=== PATIENT | male | born 1955 | race Hispanic/Latino ===

== ENCOUNTER → 2021-04-25 13:52 | Outpatient (CLI) | payer OTHER, SELFPAY ==
--- NOTE | 2021-04-25 14:05 | MRI_ITS ---
STUDY: MRI LEFT SHOULDER REASON FOR EXAM: Male, 66 years old. LEFT SHOULDER SPRAIN TECHNIQUE: Standardized fat and water weighted pulse sequences were obtained in all 3 orthogonal planes. COMPARISON: None. FINDINGS: A large full-thickness tear of the supraspinatus tendon is present with retraction of 2.39 cm from the greater tuberosity. A small glenohumeral joint effusion is present as well. Normal infraspinatus tendon. Normal subscapularis tendon. Normal teres minor tendon. Normal supraspinatus muscle. Normal infraspinatus muscle. Normal subscapularis muscle. Normal teres minor muscle. Normal glenohumeral articulation. Normal humeral head and visualized proximal humerus. Normal biceps labral complex. Normal intracapsular long biceps tendon. Normal labrum. Normal capsulo- ligamentous complex. Normal rotator interval. There is severe hypertrophic osteoarthritis of the acromioclavicular articulation with impingement upon the musculotendinous junction of the supraspinatus muscle. There is a Type II morphology (curved), with a neutral orientation. There is fluid distention of the subacromial-subdeltoid bursa, which communicates with the glenohumeral joint, through a rotator cuff tear. Normal visualized coracohumeral and coracoacromial ligaments. Normal quadrilateral space. Normal axillary space. Normal deltoid muscle. Normal trapezius muscle. MRI/Upper Ext Joint Only(Routine) IMPRESSION: 1. A large full-thickness tear of the supraspinatus tendon is present with retraction of 2.39 cm from the greater tuberosity. A small glenohumeral joint effusion is present as well. 2. 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 Electronically Signed: Олег Small MD at 21:52 EST , Service support ,
== END ==
DX: S43.402A Unspecified sprain of left shoulder joint, initial encounter (principal)
CPT/HCPCS: 73221

== ENCOUNTER 2021-11-03 08:38 | Emergency (ER) | payer OTHER, SELFPAY ==
[2021-11-03 08:39] VITALS: BP 167/81; PULSE 89; RESP 16; TEMP 36.1; O2SAT 99; BMI 33.0
--- NOTE | 2021-11-03 08:51 | EX.ED.GUMALE ---
HPI History of Present Illness Chief Complaint: Complaint Detail of Chief Complaint: Difficulty urinating. Informant: patient and spouse/S.O. Pain Onset: Days Context: Gradual Onset Timing: Continuous Current Severity: Mild Maximum Severity: Moderate Narrative Narrative: 66-year-old male had left rotator cuff surgery done at [facility] on Saturday. Since that time he had difficulty urinating. During the surgery he did have a Gunderson catheter in after they removed that he has had difficulty urinating. No gross hematuria. No dysuria or fever. No prior history. No prior prostate surgery. Prior similar symptoms: No Recent Illness/Hospitalization: No PFSH PFSH Home Medications tamsulosin [Flomax] 0.4 mg PO DAILY 10 Days #10 cap 11/03/21 [Rx Last Taken Unknown] Social History Smoking Status: Unknown if ever smoked ROS ROS ED ROS Narrative Difficulty urinating. Review of Systems ROS Unobtainable: Denies due to encephalopathy Constitutional Constitutional ED: Denies fever(s) Eyes Eyes: Denies change in vision ENT ENT ED: Denies ear pain Cardiovascular Cardiovascular: Denies chest pain Respiratory/Chest Respiratory/Chest: Denies dyspnea Gastrointestinal Gastrointestinal: Reports abdominal pain; Denies nausea or vomiting Genitourinary Genitourinary ED: Denies dysuria or hematuria Musculoskeletal Musculoskeletal: Denies myalgias Integumentary Denies rash Neurologic Neurologic: Denies headache(s) Psychiatric Psychiatric: Denies depression Endocrine Endocrinology: Denies polyuria Hematologic/Lymphatic Hematologic/Lymphatic: Denies easy bruising Allergic/Immunologic Allergic/Immunologic ED: Denies urticaria EXAM Physical Exam Narrative Exam Narrative: 66-year-old male no acute distress. Vital signs stable afebrile. H EENT exam unremarkable. Moist mucous membranes. Lungs clear to auscultation. Heart regular rhythm rate about 90 no murmur. Abdomen obese soft mildly distended and tender suprapubic region. No peritoneal signs. Moves all 4 extremities. Nontender no edema. He does have a harness on his left shoulder after the surgery. Neurologically is awake and alert. Const Vital Signs: 11/03/21 08:39 Temperature 97.0 F L Temperature Source Temporal Pulse Rate 89 Respiratory Rate 16 Blood Pressure 167/81 H Blood Pressure Mean 109 Pulse Ox 99 Oxygen Delivery Method Room Air Positive well nourished, well developed and obese; Negative for cachectic, contractures or unkempt General Appearance ED: well developed and NAD; Negative for unkempt, cachectic, contractures or pallor Nutritional Appearance: obese; Negative for cachectic HEENT Reports moist mucous membranes normocephalic; Negative for trauma or tenderness Eyes PERRL and EOMs intact bilaterally General Eye ED: Negative for pale conjunctiva or scleral icterus Neck no lymphadenopathy, supple and no JVD General: Negative for tenderness Resp normal respiratory effort and clear to auscultation bilaterally Auscultation: Negative for rales, rhonchi or wheezes Cardio regular rate, regular rhythm, S1 normal heart sound, S2 normal heart sound and no murmurs GI no masses; Negative for non-tender or non-distended Inspection: abdominal distention Auscultation: normoactive bowel sounds; Negative for hyperactive bowel sounds or hypoactive bowel sounds Palpation: soft and tender; Negative for guarding, hepatomegaly or splenomegaly Rectal Exam: tenderness no CVA tenderness Bladder / Kidney Exam: No CVA tenderness Back/Spine no CVA tenderness General Back: Negative for CVA tenderness Cervical Spine: Negative for cervical spine tenderness Extremity normal to inspection General Extremety ED: Negative for edema or tenderness General Extremity: Negative for edema Neuro oriented x3 and moves all extremities Sensorium / Orientation: alert, oriented to person, oriented to place and oriented to time Psych mental status grossly normal Appearance: Negative for unkempt Attitude: No agitated Mood & Affect: Negative for depressed or tearful Skin General Skin Exam: Negative for jaundice or pallor Lesions: no lesions Rashes: no rashes MDM MDM MDM Narrative Medical decision making narrative: 66-year-old male with a recent left rotator cuff surgery. And difficulty urinating. Suspect urinary retention. Urinalysis, bladder scan will be obtained and a Gunderson catheter be placed. Bladder scan around 1200 cc of urine. Consistent with urinary retention. 16 Hungarian Gunderson catheter was placed out difficulty. No gross blood. Clinically urine is clear and does not appear to be infected at all. Patient be discharged home on Flomax and a Gunderson leg bag and follow-up with either his primary care physician or urology. Lab Data Attestation: I reviewed the patient's lab results. Discharge Plan Triage Chief Complaint: Complaint ED Provider: Reynold Vaughn Dx/Rx/DC Orders Clinical Impression: Acute urinary retention Instructions: ED Urinary Retention, Male Prescriptions: New tamsulosin [Flomax] 0.4 mg capsule 0.4 mg PO DAILY 10 Days Qty: 10 RF: 0 Primary Care Provider: Ajay Shelby Referrals: Ismael Nelson MD [STAFF PHYSICIAN] - 3-5 Days Ajay Shelby MD [Primary Care Provider] - 3-5 Days Activity Restrictions/Additional Instructions: You have urinary retention this should get better. Follow-up with either your primary care physician or the urologist to be reevaluated next week. They can take out the Gunderson catheter and see if you can urinate. Start the medication Flomax daily. This should also help you urinate. You probably also has some constipation from the pain medication from your shoulder surgery. You can get an [id number] stool softener or use magnesium citrate. Print Language: Portuguese Disposition Disposition: Home, Self Care
--- NOTE | 2021-11-03 09:21 | ED.RN ---
pt came in with c/o low back pain and unable to pee since rotator cuff surgery. abd rounded and firm. pt interpreting some for pt. reports diarrhea however but found to be trying to relieve self of abd discomforts . 16fr lo inserted and immediate return of 1200cc out. pt reported pain relief from
== END 2021-11-03 10:01 | disposition home or self-care (01) ==
PROVIDERS: Emergency Provider Emergency Medicine; PCP Internal Medicine; Visit Provider Emergency Medicine
DX: R33.9 Retention of urine, unspecified (principal); E66.9 Obesity, unspecified; Z68.33 Body mass index [BMI] 33.0-33.9, adult
CPT/HCPCS: 51702; 99283

== ENCOUNTER 2022-07-16 09:00 | Outpatient (RCR) | payer OTHER, SELFPAY ==
--- NOTE | 2022-06-06 14:59 | HP.PTEVAL_ITS ---
Patient's Visit Information RYLIE AMES is a 67 year old M referred to Physical Therapy by FERMIN BLACKMON with a diagnosis of L shoulder RTC repair. Date of Evaluation: 06/04/22 Physical Therapist: Ebenezer Wyatt DPT - Visit Plan Frequency: 2x /Week Duration: 6 Weeks Plan: Start with progressive phase III RTC program, add in deltoid and machine exercises as tolerated. Goal or progressing towards gym and work related exercises. - Subjective Pt. is here today for his initial evaluation with diagnosis of L RTC repair. Surgery was in October of 2021. Pt. reports overall doing much better. He had been doing therapy at alternate facility, but has having to drive far to get there and decided to move to closer facility. 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 He had slipped at fell at work resulting in full thickness tear of supraspinatus tendon. Pt. reports doing better, but is still having some issues with sleeping on his L side and with lifting wt's (small) over head. Pt. has Frisian as a second language and has spouse with him to translate. Pt. had been doing some strengthening exercises at his last PT clinic and seemed to be progressing well. Pt. is to follow up with physician tomorrow and is hopeful to increase his strength in order to get back to all work and recreational activities without limitations. - Pain L shoulder Pain Intensity (Out of 10): 1 Pain Intensity Range: 0, 3 - Objective POSTURE: Pt. has decent posture in stance. Normal and equal shoulder heights noted. PALPATION: pt. has slight tenderness along subacromial space on L side, but very minimally. No pain along scapula with palpation. NEURO: normal DTR and sensation throughout BUEs. ROM: L shoulder: AROM: flexion 175deg. mild increase NW, abd 155deg mild increase NW, functional ER C5 mild increase NW, functional IR L2 mild increase NW. PROM: flexion 180deg, abd 170deg increase NW, ER at 90deg 91deg, IR at 90deg 35deg. mild increase NW. MMT: R shoulder: flexion 55.1#, abd 47.2#, ER at side 24.3#, IR at side 37.2#. L shoulder: flexion 33.2#, abd 31.6#, ER at side 12#, IR at side 15.5#. - Balance/Special Test Scores Quick DASH Score: 20.4525 - Goals Goal 1:: LTG: Pt. to be I with HEP. Goal Time Frame: 4-6 Weeks Goal 2:: STG: Pt. to sleep on L side without increase in symptoms. Goal Time Frame: 2 Weeks Goal 3:: LTG: Pt. to have symmetrical strength between B shoulders allowing for increased stability and use of L shoulder with all work related activities. Goal Time Frame: 4-6 Weeks Goal 4:: LTG: Pt. to be able to lifting 40lbs+ from ground to waist without increase in symptoms allowing for increased work related activities. Goal Time Frame: 6-8 Weeks - Rehabilitation Potential Physical Therapy Diagnosis: Pt. has signs and symptoms consistent with L shoulder RTC repair of suprascapularis tendon. Pt. has pretty good ROM with some tightness and mild soreness at end ranges, but overall pretty good. He does have some strength differences between L and R shoulder, with L shoulder being 50-60% of R shoulder throughout deltoid, but does have some marked soreness with any overhead movements. Pt. would benefit from PT to increase his scapular, periscapular and deltoid strength in order to progress back to all work related activities without increase in symptoms. Rehabilitation Potential: Excellent - Anticipated Interventions Patient/Client Instruction: Educate patient on: Condition, Plan of Care, Risk Factors, Benefits of Fitness Program For the Purpose of:: To improve decision making, To facilitate caregiver knowledge, To improve self management, To prevent re-injury, To improve ability to perform tasks related to life management, To improve tolerance to ADL's Therapeutic Exercise to Include: Strength training, Power training, Body mechanics, Postural training, Flexibilty training, Active ROM, Scapular Strength/Stabilization For the Purpose of:: To decrease pain, To increase ROM, To improve nutrient delivery to tissue, To increase oxygenation perfusion, To improve muscle performance and motor function, To improve ability to perform ADL's, To improve health of tissue, To decrease soft tissue restriction, To increase flexibility/ROM IF ES: Yes Cryotherapy (ice pack, ice massage): Yes For the Purpose of:: To decrease pain Thank you for the opportunity to evaluate your patient. For Medicare and Medicare HMO plans, please review the plan of care and approve it. It will need to be FAXED BACK to us at [phone] for Medicare purposes. For Medicare only, by signing this I certify the plan of care. Please let me know if there are questions or concerns regarding this plan of care. Physician Signature: Date:
--- NOTE | 2022-07-16 09:32 | HP.PTREVAL ---
FERMIN BLACKMON, It has been my pleasure to treat RYLIE AMES over the last 13 visits for L shoulder RTC repair. Please see the progress note below for an update on the physical therapy plan of care! Subjective: Pt. reports doing better, he is still having some issues with lifting his arm over head. No issues with sleeping. No pain at rest. Objective/Function: ROM: L shoulder: Pt. has close to full flexion, abd and functional ER. He does have some pain in mid range and above with all. He does have slightly more difficulty with functional. PROM: Pt. has full PROM, mild increase in IR. MMT: LUE: shoulder: flexion 9.1#, abd 16.8#, ER 14.5#, IR 21.6#. RUE: shoulder: flexion 33.7#, 49.8#, ER 25.1#, IR 28.8#. patient was able to lift 30# from ground to waist with minimal issues today. He continues to have a slight increase in lateral shoulder pain with flexion and abduction. He has improved in his strength, but you can see from above a marked weakness, indicating a need to continue with PT to focus on strengthening in those planes. I talked with him and his spouse about this. They were unsure of when he is to see the physician again. I told him we would need a new C( and that his physician may want to see him prior to approving more. They were to check in with his physician. Plan Plan: Pt. to see physician, I am recommending continued PT to focus on progressive strengthening of his L shoulder. Balance/Gait/Functional tests - Balance/Special Test Scores Quick DASH Score: 11.3625 Goals Goal 1:: LTG: Pt. to be I with HEP. Goal Time Frame: 4-6 Weeks Goal Progress: Progressing Goal 2:: STG: Pt. to sleep on L side without increase in symptoms. Goal Time Frame: 2 Weeks Goal Progress: Goal Met Goal 3:: LTG: Pt. to have symmetrical strength between B shoulders allowing for increased stability and use of L shoulder with all work related activities. Goal Time Frame: 4-6 Weeks Goal Progress: Progressing Goal 4:: LTG: Pt. to be able to lifting 40lbs+ from ground to waist without increase in symptoms allowing for increased work related activities. Goal Time Frame: 6-8 Weeks Goal Progress: Progressing Anticipated Interventions Patient/Client Instruction: Educate patient on: Condition, Plan of Care, Risk Factors, Benefits of Fitness Program For the Purpose of:: To improve decision making, To facilitate caregiver knowledge, To improve self management, To prevent re-injury, To improve ability to perform tasks related to life management, To improve tolerance to ADL's Therapeutic Exercise to Include: Strength training, Power training, Body mechanics, Postural training, Flexibilty training, Active ROM, Scapular Strength/Stabilization For the Purpose of:: To decrease pain, To increase ROM, To improve nutrient delivery to tissue, To increase oxygenation perfusion, To improve muscle performance and motor function, To improve ability to perform ADL's, To improve health of tissue, To decrease soft tissue restriction, To increase flexibility/ROM IF ES: Yes Cryotherapy (ice pack, ice massage): Yes For the Purpose of:: To decrease pain Please do not hesitate to contact me at [phone] by phone or if you have questions or concerns regarding this new plan of care! Sincerely, Ebenezer Wyatt DPT
== END 2022-07-16 19:00 | disposition home or self-care (01) ==
LOC: PT 09:00
PROVIDERS: PCP Internal Medicine
DX: S46.012D Strain of muscle(s) and tendon(s) of the rotator cuff of left shoulder, subsequent encounter (principal); S43.402D Unspecified sprain of left shoulder joint, subsequent encounter; M75.42 Impingement syndrome of left shoulder
CPT/HCPCS: 97110; 97161; 97164

== ENCOUNTER 2022-11-21 10:07 | Emergency (ER) | payer SELFPAY ==
[2022-11-21 10:08] VITALS: BP 169/79; PULSE 83; RESP 16; TEMP 36.4; O2SAT 96
[2022-11-21 10:20] VITALS: BMI 22.4
--- NOTE | 2022-11-21 10:25 | EKG12_ITS ---
Test Reason : Blood Pressure : / mmHG Vent. Rate : 060 BPM Atrial Rate : 060 BPM P-R Int : 198 ms QRS Dur : 082 ms QT Int : 394 ms P-R-T Axes : 042 068 027 degrees QTc Int : 394 ms Normal sinus rhythm Normal ECG Confirmed by HECTOR RIOS, HUAN ([id number]), advertising editor EN CROWDER ([id number]) on 11/22/2022 10:38:58 AM Referred By: Confirmed By:HUAN YOUNG MD
--- NOTE | 2022-11-21 10:25 | EX.ED.DYSGE1 ---
HPI History of Present Illness Chief Complaint: Hyperglycemia Informant: patient Narrative Narrative: For the past 3 weeks or so, patient has been having polyuria, polydipsia, has been acting irritable, his is a diabetic but he is not, and they have a meter at home that they have checked his blood sugar with, he has been in the 400s in the 500s, today here he is testing high on our meter. They called the doctor and tried to get him but they were referred here to the ER. Patient states he has been having mild intermittent headache on the right side, frontal temporal without vision difficulty, it is not there right now, and same with right chest discomfort that has been relatively brief when he gets that but not present at this time. No cough, fevers, dyspnea, nausea or vomiting. [facility] Medical History (Updated 11/21/22 @ 12:[address] Murali Moeller MD) BPH (benign prostatic hyperplasia) Home Medications metformin 500 mg tablet 500 mg PO BID #60 tabs 11/21/22 [Rx Last Taken Unknown] Allergy/AdvReac Type Severity Reaction Status Date / Time No Known Allergies Allergy Verified 11/21/22 10:11 Social History Smoking Status: Never smoker ROS ROS ED Constitutional Constitutional ED: Reports malaise; Denies chills or fever(s) Eyes Eyes: Denies change in vision or diplopia ENT ENT ED: Denies rhinorrhea or sore throat Cardiovascular Cardiovascular: Reports chest pain; Denies palpitations Respiratory/Chest Respiratory/Chest: Denies cough or dyspnea Gastrointestinal Gastrointestinal: Denies abdominal pain, diarrhea, nausea or vomiting Genitourinary Genitourinary ED: Reports urinary frequency; Denies dysuria or hematuria Musculoskeletal Musculoskeletal: Denies back pain or neck pain Integumentary Denies abscess or rash Neurologic Neurologic: Reports headache(s); Denies paresthesias or weakness Psychiatric Psychiatric: Reports other Details: he's been getting irritable at times ; Denies anxiety or suicidal thoughts Endocrine Endocrinology: Reports polydipsia and polyuria EXAM Physical Exam Const Vital Signs: 11/21/22 10:08 11/21/22 10:19 11/21/22 12:08 Temperature 97.6 F L Temperature Source Temporal Pulse Rate 83 54 L Respiratory Rate 16 16 Respiratory Effort Normal Non-Labored Respiratory Pattern Normal Blood Pressure 169/79 H 156/83 H Blood Pressure Mean 109 107 Pulse Ox 96 95 Oxygen Delivery Method Room Air Room Air Positive well nourished and well developed Constitutional Narrative: Well-appearing in no acute distress General Appearance ED: well developed and NAD HEENT Reports moist mucous membranes normocephalic and atraumatic Eyes PERRL and EOMs intact bilaterally Neck full ROM and supple Chest Wall inspection of chest normal and palpation of chest normal Resp normal respiratory effort and clear to auscultation bilaterally Cardio regular rate, regular rhythm and no murmurs Rate: Negative for tachycardic GI non-tender and non-distended Auscultation: normoactive bowel sounds Palpation: soft Back/Spine no CVA tenderness General Back: other FROM Extremity normal to inspection General Extremety ED: Negative for edema, pulses abnormal or tenderness General Extremity: Negative for edema or pulses abnormal Neuro oriented x3, CN's II-XII intact bilaterally and no sensory deficits noted Sensorium / Orientation: awake and alert Motor Exam: strength 5/5 throughout Psych mental status grossly normal Skin no rashes or lesions noted and no wounds MDM MDM MDM Narrative Medical decision making narrative: Patient is indeed very hyperglycemic on the chemistries, it is 548, however the rest of his studies are all normal including acetone level, anion gap, and venous pH which is 4.0. Glycosuria noted on urinalysis but otherwise normal. Renal function normal except for mild prerenal azotemia due to diuresis which was treated here, cardiac work-up unremarkable, chest x-ray normal in my interpretation. Insulin given for his glucose which will be rechecked. He is doing well clinically and does not need to be admitted to the hospital. Discussed with Dr. Browne, on-call for Dr. Shelby his PCP. She recommends starting him on metformin 500 twice daily and no other medications right now, with close outpatient follow-up. History & Record Review Additional record(s) reviewed:: Prior labs Lab Data Attestation: I reviewed the patient's lab results. Labs: Laboratory Results - last 24 hr 11/21/22 11/21/22 11/21/22 10:16 10:25 10:57 WBC 5.3 RBC 5.17 Hgb 15.8 Hct 44.2 MCV 85.5 MCH 30.6 MCHC 35.7 RDW Std Deviation 39.5 RDW Coeff of Samantha 12.8 Plt Count 175 MPV 11.7 Immature Gran % (Auto) 0.800 Neut % (Auto) 72.5 H Lymph % (Auto) 17.7 L [place] % (Auto) 4.2 Eos % (Auto) 4.2 Baso % (Auto) 0.6 Absolute Neuts (auto) 3.8 Absolute Lymphs (auto) 0.93 Nucleated RBC % 0 Sodium 131 L Potassium 4.7 Chloride 101 Carbon Dioxide 24.0 Anion Gap 6 BUN 20 H Creatinine 1.17 Estim Creat Clear Calc 61.16 Est GFR (MDRD) Af Amer 80 Est GFR (MDRD) Non-Af 66 BUN/Creatinine Ratio 17.1 Glucose 548 H* Calcium 8.9 Troponin I High Sens 5 Urine Color Yellow Urine Clarity Clear Urine pH 8.0 Ur Specific [place] 1.010 Urine Protein Negative Urine Glucose (UA) 1000 H Urine Ketones Negative Urine Occult Blood Negative Urine Nitrite Negative Urine Bilirubin Negative Urine Urobilinogen Normal Ur Leukocyte Esterase Negative Urine RBC 0 SEEN Urine WBC 0 SEEN Ur Squamous Epith Cells 0 SEEN Urine Bacteria 0 SEEN Urine Mucus 0 SEEN Acetone Level NEGATIVE POC Glucose > 500 H* 11/21/22 12:04 WBC RBC Hgb Hct MCV MCH MCHC RDW Std Deviation RDW Coeff of Samantha Plt Count MPV Immature Gran % (Auto) Neut % (Auto) Lymph % (Auto) [place] % (Auto) Eos % (Auto) Baso % (Auto) Absolute Neuts (auto) Absolute Lymphs (auto) Nucleated RBC % Sodium Potassium Chloride Carbon Dioxide Anion Gap BUN Creatinine Estim Creat Clear Calc Est GFR (MDRD) Af Amer Est GFR (MDRD) Non-Af BUN/Creatinine Ratio Glucose Calcium Troponin I High Sens Urine Color Urine Clarity Urine pH Ur Specific [place] Urine Protein Urine Glucose (UA) Urine Ketones Urine Occult Blood Urine Nitrite Urine Bilirubin Urine Urobilinogen Ur Leukocyte Esterase Urine RBC Urine WBC Ur Squamous Epith Cells Urine Bacteria Urine Mucus Acetone Level POC Glucose 414 H ABG Data ABG results: ABG 11/21/22 10:53 Specimen Type GRAYSON VBG pH 7.41 VBG pO2 60 H VBG HCO3 25 VBG Total CO2 26 VBG O2 Sat (Calc) 91 H VBG Base Excess 0 POC Mix VBG pCO2 Pt Tmp 38.8 L Radiography Chest X-Ray - ED: 2 View, Read by ED Physician and No Infiltrates Diagnostic Testing: Clinical Impression(s) from Imaging Studies Chest X-Ray 11/21/22 11:00 IMPRESSION: No acute abnormality is seen. Electronically Signed: Baljinder Thomas MD at 11:37 EDT , Rhythm Strip Rhythm Strip: Sinus Rhythm Rate: 60 Ectopy: None EKG Initial EKG: Attestation: I personally reviewed and interpreted this EKG as follows: Interpretation: Sinus Rhythm and No Acute Injury Pattern Comments: Normal EKG Management Discussion w/another healthcare provider: PCP Discharge Plan Triage Chief Complaint: Hyperglycemia ED Provider: Murali Moeller Dx/Rx/DC Orders Clinical Impression: Hyperglycemia due to diabetes mellitus Instructions: Diabetes Support, Blood Sugar Check Steps Prescriptions: New metformin 500 mg tablet 500 mg PO BID Qty: 60 0RF Primary Care Provider: Ajay Shelby Referrals: Ajay Shelby MD [Primary Care Provider] - (Call for appointment) Print Language: Icelandic Disposition Disposition: Home, Self Care
[2022-11-21 10:36] LABS: Absolute Lymphocyte Count 0.93 X10^3/uL (0.83-4.51); Absolute Neutrophil Count 3.8 X10^3/uL (2.0-7.7); Basophil# 0.03 X10^3/uL; Basophil% 0.6 % (0-1); Eosinophil# 0.22 X10^3/uL; Eosinophils% 4.2 % (0-5); Hematocrit 44.2 % (40-54); Hemoglobin 15.8 g/dL (13.0-16.5); Lymphocyte # 0.93 X10^3/ul (0.83-4.51); Lymphocyte % 17.7 % (19-41); Mean Corp Hgb Conc 35.7 g/dL (32-36); Mean Corpuscular Hgb 30.6 pg (27.0-32.0); Mean Corpuscular Volume 85.5 fL (80-94); Mean Platelet Vol. 11.7 fl (6.2-12.0); Monocyte# 0.22 X10^3/uL; Monocyte% 4.2 % (0-10); NRBC Flagged by Analyzer 0 % (0-5); Neutrophil # 3.81 X10^3/uL (2.7-7.7); Neutrophil % 72.5 % (47-70); Platelet Count 175 K/mm3 (150-450); RBC Distribution Width CV 12.8 % (11.6-14.6); RBC Distribution Width SD 39.5 fl (35.1-43.9); Red Blood Count 5.17 M/mm3 (4.6-6.2); White Blood Count 5.3 K/mm3 (4.4-11.0)
[2022-11-21 10:41] LABS: Bedside Glucose > 500 mg/dL (74-106)
[2022-11-21] MEDS: 0.9% Normal Saline 1,000 ML 999 ML IV ×2 (10:47→11:05)
[2022-11-21 10:58] LABS: Anion Gap 6 (5-15); BUN 20 mg/dL (7-18); BUN/Creat Ratio 17.1 RATIO (10-20); Calcium,Total 8.9 mg/dL (8.5-10.1); Chloride 101 mmol/L (98-107); Creatinine, Serum 1.17 mg/dL (0.70-1.30); EST Glomerular Filtration Rate 66 mL/min (>60); Est Glom Filt Rate - Afr Amer 80 mL/min (>60); Estimated Creatinine Clearance 61.16 ml/min; Glucose 548 mg/dL (74-106); Potassium 4.7 mmol/L (3.5-5.1); Sodium Level 131 mmol/L (136-145); Troponin-I HS 5 pg/mL (3.0-78.0)
[2022-11-21 10:58] LABS: Blood Gas Specimen Type VEN; VBG BASE EXCESS 0 mmol/L (-1.0-3.5); VBG Bicarbonate 25 mmol/L (22-26); VBG PO2 60 mmHg (25-40); VBG SO2 91 % (50-70); VBG TCO2 26 mmol/L (23-33); VBG pCO2 38.8 mmHg (41-51); VBG pH 7.41 (7.32-7.42)
--- NOTE | 2022-11-21 11:00 | RAD_ITS ---
STUDY: X-RAY CHEST REASON FOR EXAM: Male, 67 years old. Chest pain. Hyperglycemia. TECHNIQUE: PA and lateral views of the chest. COMPARISON: None. FINDINGS: The lungs are clear and expanded. There is no demonstrated pleural abnormality. Normal size heart. Normal mediastinum and roverto. Normal visualized pulmonary arteries. There is atherosclerotic calcification of the aortic arch with tortuosity. There is demineralization of the osseous structures. Normal visualized ribs, clavicles, and shoulders. There is no demonstrated abnormality of the visualized soft tissue structures of the upper abdomen. RAD/Chest PA and Lateral IMPRESSION: No acute abnormality is seen. Electronically Signed: Baljinder Thomas MD at 11:37 EDT ,
[2022-11-21 11:06] LABS: Bacteria 0 SEEN /hpf (None Seen); Mucous, Urine 0 SEEN /hpf (<or=2+); Red Blood Cells-Urine 0 SEEN /hpf (0-5); Squamous Epithelial Cells - UA 0 SEEN /hpf (0-5); White Blood Cells 0 SEEN /hpf (0-5)
[2022-11-21 11:24] LABS: Color, Urine Yellow (Yellow); Glucose, Dipstick 1000 mg/dl (Normal); Ketone-Dipstick Negative (Negative); Leukocyte Esterase-Dipstick Negative /ul (Negative); Nitrite-Dipstick Negative (Negative); Occult Blood-Urine Negative /ul (Negative); Protein-Dipstick Negative (Negative); Urine Bilirubin Dipstick Negative (Negative); Urine Clarity Clear (Clear); Urine Urobilinogen Normal (Normal)
[2022-11-21 12:08] VITALS: BP 156/83; PULSE 54; RESP 16; O2SAT 95
[2022-11-21 12:24] LABS: Bedside Glucose 414 mg/dL (74-106)
[2022-11-21] MEDS: Insulin Lispro 100 UNIT/ML INSULN.PEN 14 UNIT SC (12:49)
[2022-11-21 14:41] LABS: Bedside Glucose 356 mg/dL (74-106)
[2022-11-21 14:43] VITALS: RESP 18
== END 2022-11-21 14:43 | disposition home or self-care (01) ==
PROVIDERS: Emergency Provider Emergency Medicine; PCP Internal Medicine; Visit Provider Emergency Medicine
DX: E11.65 Type 2 diabetes mellitus with hyperglycemia (principal); Z79.84 Long term (current) use of oral hypoglycemic drugs
CPT/HCPCS: 71046; 80048; 81001; 82009; 82803; 82962; 84484; 85025; 93005; 96360; 96372; 99283; J7030

== ENCOUNTER 2023-11-09 13:14 | Emergency (ER) | payer SELFPAY ==
[2023-11-09 13:15] VITALS: BP 174/91; PULSE 73; RESP 17; TEMP 36.1; O2SAT 95; BMI 32.9
--- NOTE | 2023-11-09 13:44 | CT_ITS ---
HISTORY: Pain. TECHNIQUE: Helically acquired images were obtained of the abdomen and pelvis without oral or IV contrast. A radiation dose optimization technique was used for this scan. 465 images. COMPARISON: None. FINDINGS: LOWER CHEST: Mild atelectasis in the lung bases. BOWEL: Bowel including appendix nondilated. Colonic diverticulosis without focal pericolonic inflammatory change. PERITONEUM: No significant free fluid. LIVER: Unremarkable. GALLBLADDER/BILIARY TREE: Gallbladder present. SPLEEN/PANCREAS/ADRENAL GLANDS: Nonenlarged. KIDNEYS AND URETERS: 2 mm right lower pole calculus without hydronephrosis. No obstructing ureteral calculus on either side. VESSELS: No abdominal aortic aneurysm. Mild atherosclerosis. PELVIC ORGANS: Mild bladder wall thickening. Probable postoperative defect in the central prostate. ABDOMINAL WALL: Fat-containing left inguinal hernia. BONES: Mild degenerative change. CT/Abdomen/Pelvis without Cont IMPRESSION: Small nonobstructing right renal calculus. Colonic diverticulosis without acute diverticulitis. Mild bladder wall thickening, possible cystitis. Electronically Signed: Eliana Murry MD at 15:06 EDT ,
--- NOTE | 2023-11-09 13:46 | EDS_ITS ---
HPI HPI - GI History of Present Illness Chief Complaint: Flank Pain Detail of Chief Complaint: Left flank pain for 2 to 3 weeks. Informant: patient and spouse/S.O. Abdominal Pain/Flank Pain Onset: Weeks Context: Gradual Onset Timing: Intermittent Quality: Sharp and Stabbing Location: Left Flank Current Severity: Mild Maximum Severity: Moderate Worsened by: Movement Relieved by: Nothing Nausea/Vomiting/Emesis GI Symptom: Negative for Nausea or Vomiting Diarrhea/Melena/Hematochezia GI Symptom: Negative for Diarrhea, Melena or Hematochezia Associated Symptoms Associated Symptoms: Negative for Dysuria, Frequency, Hematuria or Urgency Narrative Narrative: 68-year-old male history of diabetes and BPH. He has had left flank pain for last 3 weeks. 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 No history of kidney stone. No injury to his back. No nausea, vomiting. No diarrhea or fever. No dysuria or hematuria. Prior similar symptoms: No Recent Illness/Hospitalization: No PFSH PFS Medical History BPH (benign prostatic hyperplasia) Home Medications ?Medication ?Instructions ?Recorded ?Last Taken ?Type metformin 500 mg tablet 500 mg PO BID #60 tabs 11/21/22 Unknown Rx metaxalone 800 mg tablet 800 mg PO TID 7 days #21 tabs 11/09/23 Unknown Rx Allergy/AdvReac Type Severity Reaction Status Date / Time No Known Allergies Allergy Verified 11/09/23 13:18 Social History Smoking Status: Never smoker ROS ROS ED ROS Narrative Left flank pain. Worse with movement. No dysuria or hematuria. No fever. Review of Systems ROS Unobtainable: Denies due to encephalopathy Constitutional Constitutional ED: Denies chills or fever(s) ENT ENT ED: Denies ear pain Cardiovascular Cardiovascular: Denies chest pain, palpitations or racing heartbeat Respiratory/Chest Respiratory/Chest: Denies cough or dyspnea Gastrointestinal Gastrointestinal: Denies abdominal pain, constipation, diarrhea, melena, nausea or vomiting Genitourinary Genitourinary ED: Denies dysuria or hematuria Musculoskeletal Musculoskeletal: Reports back pain and other Details: Left flank pain. ; Denies arthralgias Integumentary Denies abscess or Abrasions Neurologic Neurologic: Denies headache(s) Psychiatric Psychiatric: Denies anxiety Endocrine Endocrinology: Denies polydipsia Hematologic/Lymphatic Hematologic/Lymphatic: Denies easy bleeding Allergic/Immunologic Allergic/Immunologic ED: Denies mouth swelling or tongue swelling EXAM Physical Exam Narrative Exam Narrative: 68-year-old male. Vital signs are stable afebrile. H EENT exam unremarkable. Neck nontender no JVD. Lungs clear to auscultation bilaterally. Heart regular rhythm rate about 70 no murmur. Chest wall and ribs nontender. Abdomen soft nontender. Normal bowel sounds without peritoneal signs. No signs of trauma. No distention. No hernia or mass. Back he had some mild left flank tenderness it may be musculoskeletal. There is no bruising. There is no redness or warmth. There is no rash. Spine is nontender. He is moving all 4 extremities. 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 Dorsi plantarflexion intact. Negative straight leg raise. No edema. Neurologically is awake alert. Answering questions following commands. Const Vital Signs: 11/09/23 13:15 Temperature 96.9 F L Temperature Source Temporal Pulse Rate 73 Respiratory Rate 17 Blood Pressure 174/91 H Blood Pressure Mean 118 Pulse Ox 95 Oxygen Delivery Method Room Air Positive well nourished and well developed; Negative for cachectic, contractures or unkempt General Appearance ED: well developed and NAD; Negative for unkempt, cachectic, contractures or pallor Nutritional Appearance: Negative for cachectic HEENT Reports moist mucous membranes; Denies dry mucous membranes normocephalic and atraumatic; Negative for trauma or tenderness Mouth ED: No dry mucous membranes Mouth: No dry mucous membranes Eyes PERRL and EOMs intact bilaterally General Eye ED: Negative for pale conjunctiva or scleral icterus Neck no lymphadenopathy, supple and no JVD General: Negative for tenderness Carotids: Negative for other Lymph Lymphatic: Negative for other Resp normal respiratory effort and clear to auscultation bilaterally Effort and Inspection: Negative for respiratory distress Auscultation: Negative for rales, rhonchi, wheezes, diminished lung sounds or other Cardio regular rate, regular rhythm, S1 normal heart sound, S2 normal heart sound and no murmurs Rate: Negative for bradycardia or tachycardic Rhythm: Negative for abnormal rhythm GI non-tender, non-distended and no masses Inspection: Negative for abdominal distention Auscultation: normoactive bowel sounds Palpation: soft; Negative for tender, guarding, mass, pulsatile mass or rebound tenderness present Back/Spine Negative for no CVA tenderness Back/Spine Narrative: Left flank tenderness. No bruising. No crepitance. No redness. No rash or shingles. General Back: Negative for CVA tenderness Cervical Spine: Negative for cervical spine tenderness Thoracic Spine / Upper Back: Negative for thoracic spinal tenderness Lumbar Spine / Lower Back: Negative for lumbar spinal tenderness Coccyx: Negative for other Extremity full ROM General Extremety ED: Negative for edema or tenderness General Extremity: Negative for edema Neuro CN's II-XII intact bilaterally and moves all extremities Sensorium / Orientation: alert, oriented to person, oriented to place and oriented to time; Negative for orientation impaired, confused, lethargic or stuporous Motor Exam: strength 5/5 throughout; Negative for general weakness or strength abnormal Psych mental status grossly normal and thought process normal Appearance: Negative for unkempt Attitude: No agitated Mood & Affect: Negative for depressed, anxious or tearful Skin no wounds General Skin Exam: Negative for jaundice or pallor Rashes: no rashes Trauma: Negative for abrasion Nails: Negative for discolored MDM MDM MDM Narrative Medical decision making narrative: 68-year-old male with left flank pain for 3 weeks. Differential would include musculoskeletal versus UTI or pyelonephritis versus stone versus other. CAT scan and labs being obtained with urinalysis. He did want pain medication and be treated with morphine and Zofran. 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 Repeat exam patient is doing well at 3:25 PM. I think this is musculoskeletal back pain. Patient doing well at this time. Abdomen and back are benign. Exam unchanged. Will be discharged home. Tylenol Motrin for pain. Massage. Follow-up if not improving or return if worse. Patient's pain did improve with the morphine. I went over the test results with he and his . History & Record Review Discussion w/independent historian: Patient and Family Additional record(s) reviewed:: No prior records Lab Data Attestation: I reviewed the patient's lab results. Lab results narrative: CBC normal. White count of 5. H&H is 16 and 46. Platelets 230. Electrolytes show gap 7. Normal BUN and creatinine of 18 and 1. Glucose 162. UA normal. No white or red cells. No nitrates or bacteria. CT shows only some bladder wall thickening. No acute stone but there are renal stones. Read by the radiologist. Reviewed by me. Labs: Laboratory Results - last 24 hr 11/09/23 11/09/23 13:30 14:16 WBC 5.5 RBC 5.43 Hgb 16.1 Hct 46.6 MCV 85.8 MCH 29.7 MCHC 34.5 RDW Std Deviation 39.8 RDW Coeff of Samantha 12.9 Plt Count 230 MPV 10.5 Immature Gran % (Auto) 0.900 Neut % (Auto) 65.6 Lymph % (Auto) 20.6 [place] % (Auto) 6.6 Eos % (Auto) 5.7 H Baso % (Auto) 0.6 Absolute Neuts (auto) 3.6 Absolute Lymphs (auto) 1.12 Nucleated RBC % 0 Sodium 137 Potassium 4.0 Chloride 105 Carbon Dioxide 25.0 Anion Gap 7 BUN 18 Creatinine 1.04 Estim Creat Clear Calc 71.92 Est GFR (MDRD) Af Amer 92 Est GFR (MDRD) Non-Af 76 BUN/Creatinine Ratio 17.3 Glucose 162 H Calcium 9.1 Urine Color Yellow Urine Clarity Clear Urine pH 7.0 Ur Specific [place] 1.005 Urine Protein Negative Urine Glucose (UA) Normal Urine Ketones Negative Urine Occult Blood 25 H Urine Nitrite Negative Urine Bilirubin Negative Urine Urobilinogen Normal Ur Leukocyte Esterase Negative Urine RBC 0 SEEN Urine WBC 0 SEEN Ur Squamous Epith Cells 0 SEEN Urine Bacteria 0 SEEN Urine Mucus 0 SEEN Radiography Diagnostic Testing: Clinical Impression(s) from Imaging Studies Abdomen/Pelvis CT 11/09/23 13:44 IMPRESSION: Small nonobstructing right renal calculus. Colonic diverticulosis without acute diverticulitis. Mild bladder wall thickening, possible cystitis. Electronically Signed: Eliana Murry MD at 15:06 EDT , Discharge Plan Triage Chief Complaint: Flank Pain ED Provider: Reynold Vaughn Dx/Rx/DC Orders Clinical Impression: Acute left flank pain, Musculoskeletal back pain Instructions: ED Back Pain (Acute or Chronic) Prescriptions: New metaxalone 800 mg tablet 800 mg PO TID 7 Days Qty: 21 0RF No Action metformin 500 mg tablet 500 mg PO BID Qty: 60 0RF Primary Care Provider: Ajay Shelby Referrals: Ajay Shelby MD [Primary Care Provider] - 3-5 Days if not improving Activity Restrictions/Additional Instructions: Your labs, urinalysis and CAT scan are unremarkable. I believe this is secondary to musculoskeletal back pain and probably muscle spasms. Motrin and Tylenol for pain. Skelaxin the muscle relaxant helped to relax the muscles in your back. 1 pill 3 times a day for a week. Follow-up with your doctor if not improving. Return if worse. Print Language: Hebrew Disposition Disposition: Home, Self Care
[2023-11-09] MEDS: Ondansetron 4 MG/2 ML Vial IV (13:49)
[2023-11-09] MEDS: Morphine 4 MG/ML Syringe 6 MG IV (13:50)
[2023-11-09 13:52] LABS: Absolute Lymphocyte Count 1.12 X10^3/uL (0.83-4.51); Absolute Neutrophil Count 3.6 X10^3/uL (2.0-7.7); Basophil# 0.03 X10^3/uL; Basophil% 0.6 % (0-1); Eosinophil# 0.31 X10^3/uL; Eosinophils% 5.7 % (0-5); Hematocrit 46.6 % (40-54); Hemoglobin 16.1 g/dL (13.0-16.5); Lymphocyte # 1.12 X10^3/ul (0.83-4.51); Lymphocyte % 20.6 % (19-41); Mean Corp Hgb Conc 34.5 g/dL (32-36); Mean Corpuscular Hgb 29.7 pg (27.0-32.0); Mean Corpuscular Volume 85.8 fL (80-94); Mean Platelet Vol. 10.5 fl (6.2-12.0); Monocyte# 0.36 X10^3/uL; Monocyte% 6.6 % (0-10); NRBC Flagged by Analyzer 0 % (0-5); Neutrophil # 3.58 X10^3/uL (2.7-7.7); Neutrophil % 65.6 % (47-70); Platelet Count 230 K/mm3 (150-450); RBC Distribution Width CV 12.9 % (11.6-14.6); RBC Distribution Width SD 39.8 fl (35.1-43.9); Red Blood Count 5.43 M/mm3 (4.6-6.2); White Blood Count 5.5 K/mm3 (4.4-11.0)
[2023-11-09 14:04] LABS: Anion Gap 7 (5-15); BUN 18 mg/dL (7-18); BUN/Creat Ratio 17.3 RATIO (10-20); Calcium,Total 9.1 mg/dL (8.5-10.1); Chloride 105 mmol/L (98-107); Creatinine, Serum 1.04 mg/dL (0.70-1.30); EST Glomerular Filtration Rate 76 mL/min (>60); Est Glom Filt Rate - Afr Amer 92 mL/min (>60); Estimated Creatinine Clearance 71.92 ml/min; Glucose 162 mg/dL (74-106); Sodium Level 137 mmol/L (136-145)
[2023-11-09 14:22] LABS: Bacteria 0 SEEN /hpf (None Seen); Mucous, Urine 0 SEEN /hpf (<or=2+); Red Blood Cells-Urine 0 SEEN /hpf (0-5); Squamous Epithelial Cells - UA 0 SEEN /hpf (0-5); White Blood Cells 0 SEEN /hpf (0-5)
[2023-11-09 14:43] LABS: Color, Urine Yellow (Yellow); Glucose, Dipstick Normal (Normal); Ketone-Dipstick Negative (Negative); Leukocyte Esterase-Dipstick Negative /ul (Negative); Nitrite-Dipstick Negative (Negative); Occult Blood-Urine 25 /ul (Negative); Protein-Dipstick Negative (Negative); Specific Gravity, Urine 1.005 (1.002-1.030); Urine Bilirubin Dipstick Negative (Negative); Urine Clarity Clear (Clear); Urine Urobilinogen Normal (Normal)
[2023-11-09 15:41] VITALS: BP 162/84; PULSE 61; RESP 16; TEMP 36.1; O2SAT 97
== END 2023-11-09 15:41 | disposition home or self-care (01) ==
PROVIDERS: Emergency Provider Emergency Medicine; PCP Internal Medicine; Visit Provider Emergency Medicine
DX: R10.9 Unspecified abdominal pain (principal); E11.9 Type 2 diabetes mellitus without complications; N40.0 Benign prostatic hyperplasia without lower urinary tract symptoms; Z79.84 Long term (current) use of oral hypoglycemic drugs
CPT/HCPCS: 74176; 80048; 81001; 85025; 96374; 96375; 99283; J7030; A4216; J2405